=== PATIENT | male | born 2000 | race Caucasian/White ===

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

== ENCOUNTER 2022-06-23 19:30 | Emergency (ER) | payer OTHER ==
[~2022-06-23] VITALS: Ht 188 cm; Wt 84.1 kg
[2022-06-23 20:02] VITALS: TEMP 98.1
[2022-06-23 21:13] VITALS: BP 161/88; PULSE 92
== END 2022-06-23 21:16 | disposition left against medical advice (07) ==
LOC: COL.ER 19:30
DX: S09.90XA Unspecified injury of head, initial encounter (principal); S61.212A Laceration without foreign body of right middle finger without damage to nail, initial encounter; S60.410A Abrasion of right index finger, initial encounter; Z28.310 Unvaccinated for COVID-19; V49.9XXA Car occupant (driver) (passenger) injured in unspecified traffic accident, initial encounter; Y92.410 Unspecified street and highway as the place of occurrence of the external cause